=== PATIENT | male | born 1985 | race African-American/Black ===

== ENCOUNTER 2022-10-28 19:40 | Emergency (ER) | payer OTHER ==
[~2022-10-28] VITALS: Ht 185.4 cm; Wt 95.2 kg
[2022-10-28 19:41] VITALS: BP 160/77; TEMP 98.3; O2SAT 99
[2022-10-28] MEDS ORDERED: FEXO-111 PO (19:45)
[2022-10-28] MEDS ORDERED: LIDOCAINE 1% MDV 20ML VIAL SC ONE (20:55)
[2022-10-28] MEDS ORDERED: BOOSTRIX VACCINE (TETANUS/DIPHTH/ACEL. PERTUSSIS) 0.5ML SYR IM.IMMUN ONE (20:55)
== END 2022-10-28 22:22 | disposition home or self-care (01) ==
LOC: M ED 19:40
DX: S01.81XA Laceration without foreign body of other part of head, initial encounter (principal); W22.8XXA Striking against or struck by other objects, initial encounter; Y92.89 Other specified places as the place of occurrence of the external cause; Y93.89 Activity, other specified; Y99.8 Other external cause status; M54.9 Dorsalgia, unspecified; Z79.899 Other long term (current) drug therapy

== ENCOUNTER 2023-02-24 13:48 | Emergency (ER) | payer OTHER ==
[~2023-02-24] VITALS: Ht 185.4 cm; Wt 94.5 kg
[~2023-02-24 13:48] MED LIST: FEXO-111 PO
[2023-02-24 17:47] VITALS: BP 150/99; TEMP 98.7; O2SAT 99
== END 2023-02-24 17:50 | disposition home or self-care (01) ==
LOC: M ED 13:48
DX: M67.441 Ganglion, right hand (principal); M79.641 Pain in right hand; M54.9 Dorsalgia, unspecified